=== PATIENT | male | born 1970 | race Caucasian/White ===

== ENCOUNTER 2023-05-01 07:25 | Day surgery (SDC) | payer MEDICAID ==
[~2023-05-01 07:25] MED LIST: Midazolam 1 MG/ML 2 ML SDV ONE; Propofol 200 MG/20 ML SDV ONE; fentaNYL 50 MCG/ML SDV ONE
[2023-05-01] MEDS ORDERED: Lactated Ringers 1,000 ML IV SCH (08:00)
[2023-05-01 11:06] VITALS: BP 145/55; PULSE 55
== END 2023-05-01 11:08 | disposition home or self-care (01) ==
LOC: JP.SDS 07:25
PROVIDERS: ATTEND Student in an Organized Health Care Education/Training Program
DX: K29.50 Unspecified chronic gastritis without bleeding (principal); K31.A19 Gastric intestinal metaplasia without dysplasia, unspecified site; K63.5 Polyp of colon
CPT/HCPCS: J2250; J2704; J3010; J7120

== ENCOUNTER 2024-10-12 06:41 | Day surgery (SDC) | payer OTHER ==
[2024-10-12] MEDS: Lactated Ringers 1,000 ML IV SCH (07:21)
[2024-10-12] MEDS ORDERED: Midazolam 1 MG/ML 2 ML SDV ONE (07:28)
[2024-10-12] MEDS ORDERED: fentaNYL 50 MCG/ML SDV ONE (07:28)
[2024-10-12] MEDS ORDERED: Propofol 200 MG/20 ML SDV ONE (07:28)
[2024-10-12 09:13] VITALS: BP 141/82; PULSE 56
== END 2024-10-12 09:25 | disposition home or self-care (01) ==
LOC: JP.SDS 06:41
PROVIDERS: ATTEND Surgery
DX: R10.13 Epigastric pain (principal); K21.9 Gastro-esophageal reflux disease without esophagitis; E78.5 Hyperlipidemia, unspecified
CPT/HCPCS: 43239; J2250; J2704; J3010; J7120; 88305